=== PATIENT | male | born 1965 | race Caucasian/White ===

== ENCOUNTER 2021-01-04 10:20 | Emergency (ER) | payer SELFPAY ==
[~2021-01-04] VITALS: Ht 185.4 cm; Wt 104.3 kg
[2021-01-04 10:32] VITALS: BP 148/97
--- NOTE | 2021-01-04 10:35 | NUR ---
BIB [facility] C/O WORSENING MEDIAL R ANKLE PAIN X 3 DAYS. PT REPORTS TWISTING HIS ANKLE IN THE SHOWER 5 DAYS AGO. PAIN RATED 8/10. PT TOOK IBUPROFEN AND TYLENOL, WITH NO IMPROVEMENT. PAIN IS WORSE UPON MOVEMENT. HX ANKLE SPRAIN 2005. A&OX4, AMBULATORY, BREATHING EVEN AND UNLABORED. PEDAL PULSES 2+ BILATERALLY, SKIN IS WARM AND DRY. LIMITED ROM IN R ANKLE.
--- NOTE | 2021-01-04 10:50 | NUR ---
X RAY AT BEDSIDE
--- NOTE | 2021-01-04 11:39 | NUR ---
Patient discharged to home in stable condition. Written and verbal after care instructions given. Patient verbalizes understanding of instruction.
== END 2021-01-04 11:39 | disposition home or self-care (01) ==
LOC: ER 10:28
DX: S93.491A Sprain of other ligament of right ankle, initial encounter (principal); I10 Essential (primary) hypertension; E78.00 Pure hypercholesterolemia, unspecified; E78.5 Hyperlipidemia, unspecified; Z88.0 Allergy status to penicillin; Z88.6 Allergy status to analgesic agent; X50.1XXA Overexertion from prolonged static or awkward postures, initial encounter; Y93.89 Activity, other specified; Y92.89 Other specified places as the place of occurrence of the external cause; Y99.8 Other external cause status
CPT/HCPCS: 73610-TC